=== PATIENT | female | born 1960 | race Caucasian/White ===

== ENCOUNTER 2017-02-10 14:44 | Inpatient (IN) ==
--- NOTE | 2017-02-10 16:08 | Diag Imaging Result Doc PS360 ---
EXAM: CHEST-PORTABLE - 02/10/2017 HISTORY: SOB TECHNIQUE: Portable chest 3:45 PM COMPARISON: 06/22/2016 FINDINGS: Heart size is normal. There are COPD/emphysematous changes. There is no consolidation, pleural effusion, or pneumothorax identified. There are prominent anterior costicartilage calcifications noted. IMPRESSION: COPD/emphysematous changes. No other evidence of acute disease. Electronically signed by Rudy Hughes 02/10/2017 4:06 PM
[2017-02-10 17:15] LABS: BASO% 0.1 % (0.0-0.8); EOS# 0.01 X1000 (0.0-0.7); EOS% 0.1 % (0.0-10.0); HEMATOCRIT 28.8 % (37.0-47.0); HEMOGLOBIN 9.9 g/dL (12.0-16.0); IMM GRAN# 0.03 X1000 (0.0-0.04); IMM GRAN% 0.3 % (0.0-0.5); LYMPH# 0.76 X1000 (1.2-3.4); LYMPH% 6.4 % (20.5-51.1); MANUAL DIFF NEEDED? NO; MCH 27.7 PG (27-31); MCHC 34.4 g/dL (33-37); MCV 80.7 FL (81-99); MONO# 0.74 X1000 (0.11-0.59); MONO% 6.3 % (1.7-9.3); NEUT% 86.8 % (42.2-75.2); PLT 177 X1000 (130-400); RBC 3.57 XMIL (4.2-5.4)
[2017-02-10 17:44] LABS: AGAP 13; ALKALINE PHOSPHATASE 68 U/L (32-104); BUN 11 mg/dL (8-22); CALCIUM 9.1 mg/dL (8.8-10.2); CHLORIDE 72 mmol/L (98-107); COSMO 243; GOT 15 U/L (10-30); GPT 6 U/L (10-36); POTASSIUM 3.6 mmol/L (3.5-5.1); SODIUM 121 mmol/L (136-145); TCO2 36 mmol/L (25-35); TOTAL BILIRUBIN 0.28 mg/dL (0.20-1.00)
[2017-02-10] MEDS ORDERED: NS 1,000 ML IV ONE (17:50)
[2017-02-10 17:54] LABS: FREE T4 1.3 ng/dL (0.93-1.70)
[2017-02-10 18:41] LABS: URINE MICRO REVIEW NEEDED? NO; URINE SOURCE CLEAN CATCH
[2017-02-10 18:48] LABS: BILIRUBIN URINE NEGATIVE (NEGATIVE); BLOOD URINE NEGATIVE (NEGATIVE); COLOR YELLOW; GLUCOSE URINE NEGATIVE (NEGATIVE); LEUKOCYTES URINE NEGATIVE (NEGATIVE); NITRITE URINE NEGATIVE (NEGATIVE); PH URINE 6.5; PROTEIN URINE TRACE mg/dL (NEGATIVE); TURBIDITY URINE CLEAR (CLEAR); UROBILINOGEN URINE NORMAL (NORMAL)
[2017-02-10 18:50] LABS: UR EPITHELIAL CELLS <10 /HPF (<10); URINE BACTERIA 3+ /HPF; URINE CULTURE NEEDED? YES; URINE RBC <10 /HPF (<10); URINE WBC <10 /HPF (<10)
[2017-02-10 19:02] LABS: UR AMPHETAMINES QUAL NONE DETECTED (NONE DETECT); UR BARBITUATES QUAL PRESUMPTIVE POSITIVE (NONE DETECT); UR BENZODIAZEPIN QUAL NONE DETECTED (NONE DETECT); UR CANNABINOIDS QUAL NONE DETECTED (NONE DETECT); UR COCAINE QUAL NONE DETECTED (NONE DETECT); UR METHADONE QUAL NONE DETECTED (NONE DETECT); UR OPIATES QUAL PRESUMPTIVE POSITIVE (NONE DETECT); UR OXYCODONE QUAL NONE DETECTED (NONE DETECT); UR PCP QUAL NONE DETECTED (NONE DETECT)
[2017-02-10] MEDS ORDERED: KLONOPIN PO ONE (19:50)
[2017-02-10] MEDS ORDERED: SOLU-MEDROL IV ONE (20:39)
[2017-02-10] MEDS ORDERED: DUONEB (A & A) INH ONE (20:39)
[2017-02-10] MEDS ORDERED: KLONOPIN ONE (20:44)
[2017-02-10 21:06] LABS: ALLEN TEST YES; BE 13.1 mmoll (-3.0-3.0); BLOOD TYPE ARTERIAL; DRAW SITE R RADIAL; METHB 1.1 % (0.0-1.5); PO2(98.6) 82 mmHg (60-100); SAMPLE BLOOD; SAO2 98.1 % (95.0-100.0); THB 10.4 g/dL (11.5-17.4); pH(98.6) 7.41 (7.35-7.45)
[2017-02-10 21:07] LABS: MODALITY CANNULA
[2017-02-10 21:08] LABS: PCO2(98.6) 63 mmHg (35-45)
[2017-02-10 21:22] LABS: AGAP 16; ALBUMIN 4.2 g/dL (3.5-5.0); ALKALINE PHOSPHATASE 75 U/L (32-104); BUN 12 mg/dL (8-22); CALCIUM 9.1 mg/dL (8.8-10.2); CHLORIDE 77 mmol/L (98-107); COSMO 248; GOT 13 U/L (10-30); GPT 8 U/L (10-36); POTASSIUM 3.7 mmol/L (3.5-5.1); SODIUM 123 mmol/L (136-145); TCO2 30 mmol/L (25-35); TOTAL BILIRUBIN 0.31 mg/dL (0.20-1.00); TOTAL PROTEIN 7.5 g/dL (6.3-8.3)
[2017-02-10] MEDS ORDERED: ATIVAN IV ONE (21:59)
[2017-02-10] MEDS ORDERED: ROCEPHIN 1 GM in NS 50 ML IV ONE (22:48)
[2017-02-11] MEDS ORDERED: ZOFRAN IV PRN (00:52)
[2017-02-11] MEDS ORDERED: REGLAN PO PRN (00:52)
[2017-02-11] MEDS ORDERED: ALBUTEROL NEB INH PRN (00:52)
[2017-02-11] MEDS ORDERED: NS 1,000 ML IV SCH (00:52)
[2017-02-11] MEDS ORDERED: ATROVENT NEB INH PRN ×2 (00:52→01:03)
[2017-02-11] MEDS: LOVENOX SUBQ SCH (01:07)
[2017-02-11 01:35] LABS: AGAP 10; BUN 13 mg/dL (8-22); CALCIUM 8.6 mg/dL (8.8-10.2); CHLORIDE 81 mmol/L (98-107); COSMO 253; POTASSIUM 3.5 mmol/L (3.5-5.1); SODIUM 126 mmol/L (136-145); TCO2 35 mmol/L (25-35)
[2017-02-11] MEDS ORDERED: SOLU-MEDROL IV SCH (03:00)
[2017-02-11 05:28] LABS: EOS# 0.01 X1000 (0.0-0.7); EOS% 0.1 % (0.0-10.0); HEMOGLOBIN 9.5 g/dL (12.0-16.0); IMM GRAN# 0.02 X1000 (0.0-0.04); IMM GRAN% 0.2 % (0.0-0.5); LYMPH# 0.51 X1000 (1.2-3.4); LYMPH% 6.1 % (20.5-51.1); MANUAL DIFF NEEDED? YES; MCH 27.8 PG (27-31); MCHC 33.9 g/dL (33-37); MCV 81.9 FL (81-99); MONO# 0.08 X1000 (0.11-0.59); MPV 10.4 FL (7.4-10.4); NEUT% 92.6 % (42.2-75.2); PLT 161 X1000 (130-400); RBC 3.42 XMIL (4.2-5.4)
[2017-02-11 05:48] LABS: LYMPHS 3 % (21-51); MONO 1 % (1-9)
[2017-02-11] MEDS ORDERED: LABETALOL IV ONE (06:07)
[2017-02-11 06:17] LABS: AGAP 14; BUN 13 mg/dL (8-22); CALCIUM 8.7 mg/dL (8.8-10.2); CHLORIDE 81 mmol/L (98-107); COSMO 259; POTASSIUM 3.7 mmol/L (3.5-5.1); SODIUM 129 mmol/L (136-145); TCO2 34 mmol/L (25-35)
[2017-02-11] MEDS: ROCEPHIN 1 GM in NS 50 ML IV SCH (07:34)
[2017-02-11] MEDS: COZAAR PO SCH ×2 (08:06→20:24)
[2017-02-11] MEDS: CARDIZEM CD PO SCH (08:06)
[2017-02-11] MEDS: TENORMIN PO SCH (08:06)
[2017-02-11] MEDS: KLONOPIN PO SCH ×2 (08:06→20:24)
[2017-02-11] MEDS ORDERED: DUONEB (A & A) INH PRN (08:11)
[2017-02-11] MEDS: APRESOLINE PO SCH ×2 (08:21→20:24)
[2017-02-11] MEDS: NS 1,000 ML IV SCH ×3 (08:21→23:58)
[2017-02-11] MEDS: ATIVAN IV PRN (08:45)
[2017-02-11] MEDS ORDERED: STERILE WATER INJ. INJ PRN (08:53)
[2017-02-11] MEDS ORDERED: GEODON IM PRN (08:53)
[2017-02-11] MEDS: SPIRIVA INH SCH (09:01)
[2017-02-11] MEDS: SYMBICORT 160/4.5 MICROGM INHALER INH SCH ×2 (09:01→22:16)
[2017-02-11] MEDS: SOLU-MEDROL IV SCH ×3 (09:43→17:17)
[2017-02-11] MEDS: DUONEB (A & A) INH SCH ×4 (10:39→22:58)
[2017-02-11 12:23] LABS: AGAP 8; BUN 15 mg/dL (8-22); CALCIUM 8.4 mg/dL (8.8-10.2); CHLORIDE 83 mmol/L (98-107); COSMO 255; POTASSIUM 3.9 mmol/L (3.5-5.1); SODIUM 127 mmol/L (136-145); TCO2 36 mmol/L (25-35)
[2017-02-11 20:17] LABS: AGAP 10; BUN 14 mg/dL (8-22); CALCIUM 8.4 mg/dL (8.8-10.2); CHLORIDE 88 mmol/L (98-107); COSMO 264; POTASSIUM 3.8 mmol/L (3.5-5.1); SODIUM 132 mmol/L (136-145); TCO2 34 mmol/L (25-35)
[2017-02-11] MEDS: REMERON PO SCH (20:24)
[2017-02-12 02:31] LABS: AGAP 13; BUN 15 mg/dL (8-22); CALCIUM 8.3 mg/dL (8.8-10.2); CHLORIDE 89 mmol/L (98-107); COSMO 268; POTASSIUM 3.7 mmol/L (3.5-5.1); SODIUM 134 mmol/L (136-145); TCO2 32 mmol/L (25-35)
[2017-02-12] MEDS: DUONEB (A & A) INH SCH ×6 (03:03→22:54)
[2017-02-12] MEDS ORDERED: APRESOLINE PO ONE (05:22)
[2017-02-12] MEDS: LOVENOX SUBQ SCH (05:36)
[2017-02-12] MEDS: ROCEPHIN 1 GM in NS 50 ML IV SCH (06:15)
[2017-02-12 06:19] LABS: MANUAL DIFF NEEDED? NO
[2017-02-12 06:36] LABS: HEMATOCRIT 29.4 % (37.0-47.0); HEMOGLOBIN 9.7 g/dL (12.0-16.0); IMM GRAN# 0.06 X1000 (0.0-0.04); LYMPH# 0.84 X1000 (1.2-3.4); LYMPH% 13.4 % (20.5-51.1); MCV 84.7 FL (81-99); MONO# 0.39 X1000 (0.11-0.59); MONO% 6.2 % (1.7-9.3); MPV 10.7 FL (7.4-10.4); NEUT% 79.4 % (42.2-75.2); PLT 136 X1000 (130-400); RBC 3.47 XMIL (4.2-5.4)
[2017-02-12 07:05] LABS: AGAP 11; BUN 14 mg/dL (8-22); CALCIUM 8.3 mg/dL (8.8-10.2); CHLORIDE 92 mmol/L (98-107); COSMO 267; POTASSIUM 3.6 mmol/L (3.5-5.1); SODIUM 134 mmol/L (136-145); TCO2 31 mmol/L (25-35)
[2017-02-12] MEDS: TENORMIN PO SCH (08:17)
[2017-02-12] MEDS: COZAAR PO SCH ×2 (08:17→20:10)
[2017-02-12] MEDS: CARDIZEM CD PO SCH (08:17)
[2017-02-12] MEDS: SOLU-MEDROL IV SCH ×3 (08:18→17:44)
[2017-02-12] MEDS: NS 1,000 ML IV SCH ×2 (08:23→20:12)
--- NOTE | 2017-02-12 08:39 | Diag Imaging Result Doc PS360 ---
EXAM: CHEST-PORTABLE - 02/12/2017 HISTORY: copd patient TECHNIQUE: Portable chest [id number] COMPARISON: 02/10/2017 FINDINGS: Heart size is normal. There are COPD/emphysematous changes. There are no acute changes identified. There is no consolidation, pleural effusion, or pneumothorax identified. IMPRESSION: COPD/emphysematous changes. No acute changes. Electronically signed by Rudy Hughes 02/12/2017 8:37 AM
[2017-02-12] MEDS: KLONOPIN PO SCH ×2 (09:11→20:10)
[2017-02-12] MEDS: ATIVAN IV PRN ×2 (11:05→23:08)
[2017-02-12] MEDS: SPIRIVA INH SCH (11:30)
[2017-02-12] MEDS: SYMBICORT 160/4.5 MICROGM INHALER INH SCH ×2 (11:30→19:25)
[2017-02-12] MEDS: REMERON PO SCH (20:10)
[2017-02-12] MEDS: APRESOLINE PO SCH (22:07)
[2017-02-13] MEDS ORDERED: APRESOLINE IV ONE (02:31)
[2017-02-13] MEDS: DUONEB (A & A) INH SCH ×6 (03:17→22:55)
[2017-02-13] MEDS: LOVENOX SUBQ SCH (05:19)
[2017-02-13] MEDS: NS 1,000 ML IV SCH ×2 (05:20→16:16)
[2017-02-13] MEDS: ROCEPHIN 1 GM in NS 50 ML IV SCH (06:28)
[2017-02-13 07:19] LABS: MANUAL DIFF NEEDED? NO
[2017-02-13 07:33] LABS: BASO% 0.1 % (0.0-0.8); EOS# 0.01 X1000 (0.0-0.7); EOS% 0.1 % (0.0-10.0); HEMATOCRIT 29.1 % (37.0-47.0); HEMOGLOBIN 9.4 g/dL (12.0-16.0); IMM GRAN# 0.17 X1000 (0.0-0.04); IMM GRAN% 2.3 % (0.0-0.5); LYMPH# 1.04 X1000 (1.2-3.4); MCH 27.4 PG (27-31); MCHC 32.3 g/dL (33-37); MCV 84.8 FL (81-99); MONO# 0.44 X1000 (0.11-0.59); MONO% 5.9 % (1.7-9.3); MPV 10.2 FL (7.4-10.4); NEUT% 77.6 % (42.2-75.2); PLT 183 X1000 (130-400); RBC 3.43 XMIL (4.2-5.4)
[2017-02-13 07:43] LABS: AGAP 8; BUN 11 mg/dL (8-22); CALCIUM 8.6 mg/dL (8.8-10.2); CHLORIDE 94 mmol/L (98-107); COSMO 274; POTASSIUM 3.3 mmol/L (3.5-5.1); SODIUM 138 mmol/L (136-145); TCO2 36 mmol/L (25-35)
[2017-02-13] MEDS: SPIRIVA INH SCH (07:57)
[2017-02-13] MEDS: SYMBICORT 160/4.5 MICROGM INHALER INH SCH ×2 (07:58→19:10)
[2017-02-13] MEDS: KLONOPIN PO SCH ×2 (08:16→20:43)
[2017-02-13] MEDS: TENORMIN PO SCH (08:16)
[2017-02-13] MEDS: CARDIZEM CD PO SCH (08:16)
[2017-02-13] MEDS: SOLU-MEDROL IV SCH ×3 (08:16→17:26)
[2017-02-13] MEDS: COZAAR PO SCH ×2 (08:17→20:43)
[2017-02-13] MEDS: APRESOLINE PO SCH (08:17)
[2017-02-13] MEDS ORDERED: APRESOLINE PO SCH (09:30)
[2017-02-13] MEDS ORDERED: CATAPRES PO PRN (13:41)
[2017-02-13] MEDS: REMERON PO SCH (20:43)
[2017-02-14] MEDS: DUONEB (A & A) INH SCH ×6 (03:25→23:15)
[2017-02-14] MEDS: LOVENOX SUBQ SCH (05:24)
[2017-02-14] MEDS: NS 1,000 ML IV SCH ×2 (06:06→17:49)
[2017-02-14 06:08] LABS: MANUAL DIFF NEEDED? NO
[2017-02-14 06:18] LABS: BASO% 0.2 % (0.0-0.8); HEMATOCRIT 26.2 % (37.0-47.0); HEMOGLOBIN 8.3 g/dL (12.0-16.0); IMM GRAN# 0.11 X1000 (0.0-0.04); IMM GRAN% 1.9 % (0.0-0.5); LYMPH# 0.64 X1000 (1.2-3.4); LYMPH% 11.3 % (20.5-51.1); MCH 26.6 PG (27-31); MCHC 31.7 g/dL (33-37); MONO# 0.39 X1000 (0.11-0.59); MONO% 6.9 % (1.7-9.3); MPV 10.2 FL (7.4-10.4); NEUT% 79.7 % (42.2-75.2); PLT 169 X1000 (130-400); RBC 3.12 XMIL (4.2-5.4)
[2017-02-14 06:36] LABS: AGAP 8; BUN 10 mg/dL (8-22); CALCIUM 7.6 mg/dL (8.8-10.2); CHLORIDE 95 mmol/L (98-107); COSMO 274; POTASSIUM 3.1 mmol/L (3.5-5.1); SODIUM 137 mmol/L (136-145); TCO2 34 mmol/L (25-35)
[2017-02-14] MEDS: ROCEPHIN 1 GM in NS 50 ML IV SCH (06:38)
[2017-02-14] MEDS: SYMBICORT 160/4.5 MICROGM INHALER INH SCH ×2 (07:50→19:15)
[2017-02-14] MEDS: SPIRIVA INH SCH (07:50)
[2017-02-14] MEDS: SOLU-MEDROL IV SCH ×2 (09:02→17:42)
[2017-02-14] MEDS: KLONOPIN PO SCH ×2 (09:03→22:11)
[2017-02-14] MEDS: CARDIZEM CD PO SCH (09:03)
[2017-02-14] MEDS: TENORMIN PO SCH (09:03)
[2017-02-14] MEDS: COZAAR PO SCH ×2 (09:03→22:11)
[2017-02-14] MEDS: REMERON PO SCH (22:10)
[2017-02-15] MEDS: DUONEB (A & A) INH SCH ×6 (03:05→23:15)
[2017-02-15] MEDS: SOLU-MEDROL IV SCH ×3 (03:28→17:05)
[2017-02-15] MEDS: NS 1,000 ML IV SCH ×5 (03:28→14:11)
[2017-02-15] MEDS: LOVENOX SUBQ SCH (05:38)
[2017-02-15 06:46] LABS: AGAP 11; BUN 9 mg/dL (8-22); CALCIUM 8.5 mg/dL (8.8-10.2); CHLORIDE 96 mmol/L (98-107); COSMO 283; POTASSIUM 2.7 mmol/L (3.5-5.1); SODIUM 142 mmol/L (136-145); TCO2 35 mmol/L (25-35)
[2017-02-15] MEDS: SYMBICORT 160/4.5 MICROGM INHALER INH SCH ×2 (07:53→18:50)
[2017-02-15] MEDS: SPIRIVA INH SCH (07:54)
[2017-02-15] MEDS: COZAAR PO SCH ×2 (08:15→22:37)
[2017-02-15] MEDS: ROCEPHIN 1 GM in NS 50 ML IV SCH (08:15)
[2017-02-15] MEDS: TENORMIN PO SCH (08:15)
[2017-02-15] MEDS: CARDIZEM CD PO SCH (08:15)
[2017-02-15] MEDS: KLONOPIN PO SCH ×2 (08:15→22:37)
[2017-02-15] MEDS: REMERON PO SCH (22:38)
[2017-02-16] MEDS: SOLU-MEDROL IV SCH ×2 (01:50→08:56)
[2017-02-16] MEDS: DUONEB (A & A) INH SCH ×3 (03:40→11:21)
[2017-02-16] MEDS: NS 1,000 ML IV SCH ×2 (04:47→08:56)
[2017-02-16] MEDS: LOVENOX SUBQ SCH (06:05)
[2017-02-16 06:59] LABS: AGAP 8; BUN 10 mg/dL (8-22); CALCIUM 8.1 mg/dL (8.8-10.2); CHLORIDE 95 mmol/L (98-107); COSMO 277; POTASSIUM 2.6 mmol/L (3.5-5.1); SODIUM 139 mmol/L (136-145); TCO2 36 mmol/L (25-35)
[2017-02-16] MEDS: SYMBICORT 160/4.5 MICROGM INHALER INH SCH (07:33)
[2017-02-16] MEDS: SPIRIVA INH SCH (07:34)
[2017-02-16] MEDS: KLONOPIN PO SCH (08:56)
[2017-02-16] MEDS: CARDIZEM CD PO SCH (08:56)
[2017-02-16] MEDS: COZAAR PO SCH (08:56)
[2017-02-16] MEDS: TENORMIN PO SCH (08:56)
[2017-02-16 11:55] VITALS: BP 182/84
== END 2017-02-16 14:47 | disposition home or self-care (01) ==
LOC: ED 14:44 → SUATTDRO 02-11 00:31 → ICU 02-11 00:31 → 4N 02-13 13:32
PROVIDERS: ATTEND Emergency Medicine